=== PATIENT | female | born 1980 | race Caucasian/White ===

== ENCOUNTER 2022-07-08 22:52 | Emergency (ER) | payer OTHER ==
[~2022-07-08] VITALS: Ht 185.4 cm; Wt 84.0 kg
[~2022-07-08 22:52] MED LIST: DOK100 MG PO; METOCLOPRAMIDE10 MG PO; OXYCODONE-ACET1 EAC1 PO; PRENATAL CAPLE1 EACH PO
[2022-07-08] MEDS ORDERED: MONTELUKAST SOD10 MG PO (23:05)
[2022-07-08] MEDS ORDERED: DROSPIRENONE-E1 EAC1 PO (23:06)
[2022-07-08] MEDS ORDERED: DOXYCYCLINE HY100 MG PO (23:14)
== END 2022-07-08 23:28 | disposition home or self-care (01) ==
LOC: ED 22:52
DX: L53.9 Erythematous condition, unspecified (principal); Z79.899 Other long term (current) drug therapy
CPT/HCPCS: 99283; A9270

== ENCOUNTER 2023-03-02 16:39 | Emergency (ER) | payer OTHER ==
[~2023-03-02] VITALS: Ht 185.4 cm; Wt 84.8 kg
[~2023-03-02 16:39] MED LIST changes: +DOXYCYCLINE HY100 MG PO; +DROSPIRENONE-E1 EAC1 PO; +MONTELUKAST SOD10 MG PO
[2023-03-02] MEDS ORDERED: CEPHALEXIN500 M1 PO (20:25)
[2023-03-02 20:43] VITALS: BP 133/74
== END 2023-03-02 20:44 | disposition home or self-care (01) ==
LOC: ED 16:39
DX: I80.01 Phlebitis and thrombophlebitis of superficial vessels of right lower extremity (principal); Z79.899 Other long term (current) drug therapy
CPT/HCPCS: 36415; 85379; 93971; 99284-25; A9270

== ENCOUNTER 2024-07-09 13:15 | Emergency (ER) | payer OTHER ==
[~2024-07-09] VITALS: Ht 185.4 cm; Wt 83.2 kg
[~2024-07-09 13:15] MED LIST changes: +CEPHALEXIN500 M1 PO; +ELIQUIS5 MG PO
[2024-07-09 15:58] VITALS: BP 128/80
== END 2024-07-09 16:00 | disposition home or self-care (01) ==
LOC: ED 13:15
DX: I87.001 Postthrombotic syndrome without complications of right lower extremity (principal)
CPT/HCPCS: 93971; 99283-25

== ENCOUNTER 2024-12-22 08:56 | Emergency (ER) | payer OTHER ==
[~2024-12-22] VITALS: Ht 185.4 cm; Wt 80.1 kg
[~2024-12-22 08:56] MED LIST changes: +NITROFURANTOIN100 M1 PO; +OXYBUTYNIN CHLOR5 MG PO; +PYRIDIUM200 MG PO
--- OUTSIDE RECORDS SUMMARY | 2024-12-22 09:02 | XMS ---
PreManage Notification: KENNY LEON [employer] In[employer] Events No recent Security Events currently on file CRITERIA MET - [facility] - 2 Visits in 30 Days CARE PROVIDERS [facility]/[place]: Multi-Specialty Current FAMILY PHONE: Unknown Zacarias has no Care Guidelines for this patient. Kev VISIT COUNT ([address] [facility] TOTAL 3 NOTE: Visits indicate total known visits. 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
[2024-12-22] MEDS ORDERED: BUSPIRONE HCL7.5 MG PO (09:11)
[2024-12-22] MEDS ORDERED: SODIUM CHLORIDE 0.9% 1,000 ML IV PRN (09:15)
[2024-12-22 11:00] VITALS: BP 123/80
== END 2024-12-22 10:59 | disposition home or self-care (01) ==
LOC: ED 08:56
DX: M79.661 Pain in right lower leg (principal); Z79.899 Other long term (current) drug therapy
CPT/HCPCS: 80053; 81001; 83690; 85025; 93971; 99283-25